=== PATIENT | male | born 2000 | race Caucasian/White ===

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

== ENCOUNTER 2018-08-31 04:26 | Emergency (ER) | payer OTHER ==
[2018-08-31] MEDS ORDERED: Metoclopramide IV* 5 MG/ML 2 ML VIAL ONE (04:39)
[2018-08-31] MEDS ORDERED: Metoclopramide IV* 5 MG/ML 2 ML VIAL IV ONE (04:41)
[2018-08-31] MEDS ORDERED: NS 0.9% 1000 ML** 2,000 ML IV ONE (04:43)
[2018-08-31] MEDS ORDERED: Pantoprazole IV* 40 MG IV ONE (04:44)
--- NOTE | 2018-08-31 04:49 | ED ---
GI/ HPI - HPI Summary HPI Summary: The patient is a 18 year old male who is presenting to the [facility] with a chief complaint of vomiting. The patient also reports of nausea, dizziness, congestion and headaches. He denies fevers and diarrhea. During the onset of the symptoms, the patient was at his friends house. 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 The leukemia has been in remission for 5 years. He reports that this left arm and left leg are weaker than his right sided extremities. Currently, the patient denies dizziness, however reports of room spinning character dizziness were stated to be prior to [facility] arrival. The pain is rated to be 6/10 in severity. Symptoms are alleviated by nothing. Symptoms are aggravated by nothing. - History of Current Complaint Chief Complaint: EDDizziness Time Seen by Provider: 08/31/18 04:28 Stated Complaint: GENERAL ILLNESS-PER EMS Hx Obtained From: Patient Timing: Constant Severity: Moderate Current Severity: Moderate Pain Intensity: 6 Associated Signs and Symptoms: Positive: Nausea, Vomiting. Negative: Diarrhea, Fever - Allergy/Home Medications Allergies/Adverse Reactions: Allergies Allergy/AdvReac Type Severity Reaction Status Date / Time MS Asparaginase AdvReac Severe Intracranial Verified 07/06/14 12:53 [Asparaginase] bleeding Home Medications: Home Medications NK [No Home Medications Reported] 08/31/18 [History Confirmed 08/31/18] PMH/Surg Hx/FS Hx/Imm Hx Endocrine/Hematology History: Denies: Hx Anticoagulant Therapy, Hx Diabetes, Hx Thyroid Disease Cardiovascular History: Denies: Hx Hypertension, Hx Pacemaker/ICD Respiratory History: Reports: Hx Asthma Denies: Hx Chronic Obstructive Pulmonary Disease (COPD) History: Denies: Hx Renal Disease Neurological History: Denies: Hx Dementia, Hx Seizures Psychiatric History: Denies: Hx Substance Abuse - Cancer History Cancer Type, 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, 2009 - Surgical History Surgery Procedure, Year, and Place: PIECE OF SKULL REMOVED, TUBES PLACED IN BUTTOCKS FOR SPIDER BITE, PORT PLACEMENT AND REMOVAL 2008 Infectious Disease History: No Infectious Disease History: Reports: Hx of Known/Suspected MRSA Denies: Hx Hepatitis, Hx Human Immunodeficiency Virus (HIV), Traveled Outside the [place] in Last 30 Days - Family History Known Family History: Positive: Non-Contributory - Social History Alcohol Use: None Substance Use Type: Reports: None Smoking Status (MU): Never Smoked Tobacco Review of Systems Constitutional: Negative Eyes: Negative ENT: Other - Congestion Cardiovascular: Negative Respiratory: Negative Positive: Vomiting, Diarrhea, Nausea Genitourinary: Negative Musculoskeletal: Negative Skin: Negative Neurological: Other - Dizziness Positive: Headache Psychological: Normal All Other Systems Reviewed And Are Negative: Yes Physical Exam - Summary Physical Exam Summary: VITAL SIGNS: Reviewed. GENERAL: Patient is a MALE) who is lying comfortable in the stretcher. Patient is not in any acute respiratory distress. Actively vomiting in the emergency room. HEAD AND FACE: No signs of trauma. No ecchymosis, hematomas or skull depressions. No sinus tenderness. EYES: PERRLA, EOMI x 2, No injected conjunctiva, no nystagmus., Extra-ocular muscles intact EARS: Hearing grossly intact. Ear canals and tympanic membranes are within normal limits. MOUTH: Oropharynx within normal limits. NECK: Supple, trachea is midline, no adenopathy, no JVD, no carotid bruit, no c- spine tenderness, neck with full ROM. CHEST: Symmetric, no tenderness at palpation LUNGS: Clear to auscultation bilaterally. No wheezing or crackles. CVS: Regular rate and rhythm, S1 and S2 present, no murmurs or gallops appreciated. ABDOMEN: Soft, non-tender. No signs of distention. No rebound no guarding, and no masses palpated. Bowel sounds are normal. EXTREMITIES: FROM in all major joints, no edema, no cyanosis or clubbing. NEURO: Left side helene-paralysis which his old; SKIN: Dry and warm Triage Information Reviewed: Yes Vital Signs On Initial Exam: Initial Vitals Temp Pulse Resp BP Pulse Ox 99 F 85 18 144/85 100 08/31/18 04:28 08/31/18 04:28 08/31/18 04:28 08/31/18 04:28 08/31/18 04:28 Vital Signs Reviewed: Yes Diagnostics - Vital Signs Vital Signs Temp Pulse Resp BP Pulse Ox 08/31/18 04:28 99 F 85 18 144/85 100 - Laboratory Result Diagrams: 08/31/18 05:10 08/31/18 05:10 Lab Statement: Any lab studies that have been ordered have been reviewed, and results considered in the medical decision making process. GIGU Course/Dx - Course Course Of Treatment: The patient is a 18 year old male who is presnting to the [facility] with a chief complaint of vomiting. The patient has had multiple episodes of vomiting. The patient's mother has discussed with us that the patient has factor 5 mutation which could be a risk factor for venous thrombosis. Due to this risk, the patient will receive a Brain MRI and Brain MRV to rule out cerebral venous thrombosis. The patient will be signed out to Dr. Giordano pending MRI, MRV and disposition. the dx will be headache. - Diagnoses Provider Diagnoses: Headache Discharge - Sign-Out/Discharge Documenting (check all that apply): Patient Departure - Discharge Home, Sign- Out Patient Signing out patient TO: Airam Giordano Patient Received Moderate/Deep Sedation with Procedure: No - Discharge Plan Condition: Stable Disposition: HOME Referrals: Randy Diaz MD [Primary Care Provider] - - Billing Disposition and Condition Condition: STABLE Disposition: Home - Attestation Statements Document Initiated by Mike: Yes Documenting Scribe: Elijah Webber Provider For Whom Mike is Documenting (Include Credential): Dr. Carissa Ellisonibganga Attestation: Elijah Montes scribed for Dr. Lamberto Goode on 08/31/18 at 0653. Scribe Documentation Reviewed: Yes Provider Attestation: The documentation as recorded by the Elijah canela accurately reflects the service I personally performed and the decisions made by Dr. Carissa almazan Status of Scribganga Document: Viewed
[2018-08-31] MEDS ORDERED: Ketorolac INJ* 15 MG/ML 1 ML VIAL IV PUSH ONE (05:06)
[2018-08-31 05:13] LABS: Influenza A Molecular NEGATIVE (Negative); Influenza B Molecular NEGATIVE (Negative)
[2018-08-31 05:32] LABS: ABS Basophils 0 10^3/ul (0-0.2); ABS Eosinophils 0.1 10^3/ul (0-0.6); ABS Lymphocytes 1.7 10^3/ul (1.0-4.8); ABS Monocytes 0.8 10^3/ul (0-0.8); ABS Neutrophils 10.1 10^3/ul (1.5-7.7); ABS Nucleated RBC 0 10^3/ul; Eosinophil % 0.7 %; Hematocrit 45 % (42-52); Hemoglobin 14.6 g/dl (14.0-18.0); Lymphocyte % 13.7 %; Mean Corpuscular HGB Conc 33 g/dl (31-36); Mean Corpuscular Hemoglobin 28 pg (27-31); Mean Corpuscular Volume 86 fL (80-94); Mean Platelet Volume 7.7 fL (7.4-10.4); Nucleated Red Blood Cells % 0; Platelet Count 236 10^3/ul (150-450); Red Blood Count 5.21 10^6/ul (4.00-5.40); Red Cell Distribution Width 14 % (10.5-15); White Blood Count 12.7 10^3/ul (3.5-10.8)
[2018-08-31] MEDS ORDERED: Ketorolac INJ* 30 MG/ML 1 ML VIAL IV PUSH ONE (05:35)
[2018-08-31] MEDS ORDERED: Ketorolac INJ* 15 MG/ML 1 ML VIAL ONE (05:37)
[2018-08-31 05:56] LABS: Albumin 4.2 g/dL (3.2-5.2); Amylase 43 U/L (29-103); CO2 Carbon Dioxide 23 mmol/L (22-32); Calcium 9.2 mg/dL (8.6-10.3); Chloride 107 mmol/L (101-111); Sodium 138 mmol/L (135-145)
[2018-08-31] MEDS ORDERED: diPHENhydraMINE IV* 50 MG/ML 1 ml VIAL (BENADRYL) IV ONE (05:58)
[2018-08-31 06:03] LABS: ALT 8 U/L (7-52); Albumin/Globulin Ratio 1.8 (1-3); Alkaline Phosphatase 85 U/L (34-104); BUN/Creatinine Ratio 10.5 (8-20); Blood Urea Nitrogen 8 mg/dL (6-24); C Reactive Protein 2.74 mg/L (<8.01); EGFR African American 158.2 (>60); EGFR Non-African American 130.8 (>60); Globulin 2.3 g/dL (2-4); Glucose 93 mg/dL (70-100); Total Protein 6.5 g/dL (6.4-8.9)
[2018-08-31 06:04] LABS: Anion Gap 8 mmol/L (2-11)
--- NOTE | 2018-08-31 07:16 | ED ---
Progress - Progress Note Progress Note: This patient was signed out from Dr. Goode to Dr. Giordano upon shift change at 07: 00 08/31/18 pending MRI and MRV of the brain. Brain MRI impression: 1. 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 2. 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 THE DIFFERENTIAL INCLUDES THE SEQUELA OF RADIATION THERAPY. ED physician has reviewed this imaging report. Head MRV impression: NO VENOUS SINUS THROMBOSIS OR OCCLUSION. ED physician has reviewed this imaging report. I discussed results with patient and he reports feeling better. He is hemodynamically stable and safe for discharge. Strict return precautions given and he will otherwise follow up with his PCP. Re-Evaluation - Re-Evaluation First Eval Re-Evaluation Time: 12:13 Change: Improved Comment: reports a slight headahce Course/Dx - Course Course Of Treatment: This patient was signed out from Dr. Goode to Dr. Giordano upon shift change at 07:00 08/31/18 pending MRI and MRV of the brain. Brain MRI impression: 1. 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 2. ELEVATED T2/FLAIR SIGNAL WITHIN THE PERIVENTRICULAR WHITE MATTER CORRESPONDING TO A. MATTER CHANGES NOTED ON MULTIPLE PREVIOUS CT SCANS CONSISTENT WITH CHRONIC WHITE MATTER. DISEASE OF UNCERTAIN ETIOLOGY. THE DIFFERENTIAL INCLUDES THE SEQUELA OF RADIATION THERAPY. ED physician has reviewed this imaging report. Head MRV impression: NO VENOUS SINUS THROMBOSIS OR OCCLUSION. ED physician has reviewed this imaging report. I discussed results with patient and he reports feeling better. He is hemodynamically stable and safe for discharge. Strict return precautions given and he will otherwise follow up with his PCP. - Diagnoses Provider Diagnoses: Headache, Dizziness Discharge - Sign-Out/Discharge Documenting (check all that apply): Patient Departure - DC Patient Received Moderate/Deep Sedation with Procedure: No - Discharge Plan Condition: Stable Disposition: HOME Prescriptions: Ondansetron ODT TAB* [Zofran 4 MG Odt TAB*] 4 mg PO Q8H PRN #12 tab.odt PRN Reason: Nausea Patient Education Materials: Acute Headache (DC), Dizziness (ED) Forms: *Work Release Referrals: Randy Diaz MD [Primary Care Provider] - (1-3 days) Additional Instructions: RETURN TO THE EMERGENCY DEPARTMENT FOR CHANGING OR WORSENING SYMPTOMS. - Billing Disposition and Condition Condition: STABLE Disposition: Home - Attestation Statements Document Initiated by Mike: Yes Documenting Scribe: Parveen Alvarez Provider For Whom Mike is Documenting (Include Credential): Airam Giordano MD Scribe Attestation: IParveen, scribed for Airam Giordano MD on 08/31/18 at 1838. Scribe Documentation Reviewed: Yes Provider Attestation: The documentation as recorded by the Parveen canela accurately reflects the service I personally performed and the decisions made by me, Kelley Giordano MD Status of Scribe Document: Viewed
[2018-08-31] MEDS ORDERED: Gadoteridol* (CONTRAST) 279.3 MG/ML 10 ML IV ONE (11:04)
[2018-08-31 12:46] VITALS: BP 137/84
== END 2018-08-31 12:46 | disposition home or self-care (01) ==
LOC: ED 04:26
DX: R51 Headache (principal); R42 Dizziness and giddiness; R11.2 Nausea with vomiting, unspecified; C95.91 Leukemia, unspecified, in remission; I69.364 Other paralytic syndrome following cerebral infarction affecting left non-dominant side; D68.51 Activated protein C resistance; Z88.8 Allergy status to other drugs, medicaments and biological substances
CPT/HCPCS: 36415; 70546; 70551; 80053; 82150; 83690; 83735; 85025; 86140; 96361; 96374; 96375; 99283; A9579; J1200; J1885; J2765

== ENCOUNTER 2018-09-01 19:55 | Observation (INO) | payer OTHER ==
--- NOTE | 2018-09-01 20:18 | ED ---
Neurological HPI - HPI Summary HPI Summary: The patient is a 18 y/o M presenting to [facility] with a chief complaint of viral symptoms starting a few days ago with new neurological symptoms today. At initial onset, the patient suddenly woke up with diaphoresis, nausea, and vomiting which continued, so he came to the ED two days ago, but all results were normal. At this time, he also had a right temporal headache and fever. All of these symptoms have persisted into today in the same presentation, but he also had seizure-like activity approximately an hour [employer], as witnessed by his mother. She states that the patient was lying on the couch, when she heard him shout for her, and when she got to him, she saw that he was having whole-body shaking that was followed by stiffness, unresponsiveness, and then confusion. This happened twice, with each episode lasting for about 2-3 minutes, and 7 minutes between the episodes. His mother states he does not seem like himself now despite rating his pain 2/10 in severity. He denies abd pain, neck pain, and chest pain, but he reports increased dizziness and becoming more off- balance with ambulation. 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 - History of Current Complaint Chief Complaint: EDSeizure Stated Complaint: HEADACHE PER EMS Time Seen by Provider: 09/01/18 20:02 Hx Obtained From: Patient Onset/Duration: Sudden Onset - neurological symptoms, Started days ago - viral symptoms, Still Present Timing: Sudden Onset Onset Severity: Moderate Current Severity: Severe Seizure Severity: Moderate Number of Seizures: 2 - witnessed by mother Neurological Deficit Location: Generalized Headache Location: Temporal (Right) Pain Intensity: 2 Pain Scale Used: 0-10 Numeric Character: Dizzy, Confusion, Responsiveness - decreased Aggravating: Nothing Alleviating: Nothing Associated Signs and Symptoms: Positive: Unsteady Gait, Headache, Confusion, Dizziness, Seizure - possible, Nausea/Vomiting, Fever. Negative: Chest Pain - Allergy/Home Medications Allergies/Adverse Reactions: Allergies Allergy/AdvReac Type Severity Reaction Status Date / Time asparaginase Allergy See Comment Verified 08/31/18 07:08 PMH/Surg Hx/FS Hx/Imm Hx Endocrine/Hematology History: Denies: Hx Anticoagulant Therapy, Hx Diabetes, Hx Thyroid Disease Cardiovascular History: Denies: Hx Hypertension, Hx Pacemaker/ICD Respiratory History: Reports: Hx Asthma Denies: Hx Chronic Obstructive Pulmonary Disease (COPD) History: Denies: Hx Renal Disease Sensory History: Denies: Hx Hearing Aid Neurological History: Denies: Hx Dementia, Hx Seizures Psychiatric History: Denies: Hx Panic Disorder, Hx Substance Abuse - Cancer History Cancer Type, 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, 2008 - Surgical History Surgery Procedure, Year, and Place: PIECE OF SKULL REMOVED, TUBES PLACED IN BUTTOCKS FOR SPIDER BITE, PORT PLACEMENT AND REMOVAL 2008 Infectious Disease History: No Infectious Disease History: Reports: Hx of Known/Suspected MRSA Denies: Hx Hepatitis, Hx Human Immunodeficiency Virus (HIV), Traveled Outside the [place] in Last 30 Days - Family History Known Family History: Positive: Non-Contributory Family History: patient and family are non-contributory at this time - Social History Lives: With Family Alcohol Use: None Hx Substance Use: No Substance Use Type: Reports: None Substance Use Comment - Amount & Last Used: occasionally Hx Tobacco Use: No Smoking Status (MU): Never Smoked Tobacco Review of Systems Positive: Fever Negative: Chest Pain Positive: Vomiting, Nausea. Negative: Abdominal Pain Neurological: Other - POSITIVE: dizziness, changes in balance, two episodes of whole body shaking followed by body stiffness, decreased responsiveness, and confusion; NEGATIVE: neck pain Positive: Headache - right temporal All Other Systems Reviewed And Are Negative: Yes Physical Exam - Summary Physical Exam Summary: Appearance: Well-appearing young man, Well-nourished, lying in bed comfortably Skin: Warm, dry, no obvious rash Eyes: sclera anicteric, no conjunctival pallor ENT: mucous membranes moist, pharynx appears normal, no oral lesions Neck: Supple, nontender, no meningismus Respiratory: Clear to auscultation, no signs of respiratory distress Cardiovascular: Normal S1, S2. No murmurs. Normal distal pulses in tibial and radial bilaterally. Abdomen: Soft, nontender, normal active bowel sounds present Musculoskeletal: Normal, Strength/ROM Intact Neurological: A&Ox3, awake and alert, mentation is normal, speech is fluent and appropriate, spastic hemiparesis on left, particularly the upper extremity Psychiatric: affect is normal, does not appear anxious or depressed Triage Information Reviewed: Yes Vital Signs On Initial Exam: Initial Vitals Temp Pulse Resp BP Pulse Ox 100.1 F 79 20 142/94 100 09/01/18 19:58 09/01/18 19:58 09/01/18 19:58 09/01/18 19:58 09/01/18 19:58 Vital Signs Reviewed: Yes Procedures - Lumbar Puncture Lumbar Paraspinals Position: Sitting Aseptic Technique: Lidocaine Anesthesia Used: 2.0% Lido Lumbar Puncture Note: Fluid was obtained from L3-L4 interspace. Diagnostics - Vital Signs Vital Signs Temp Pulse Resp BP Pulse Ox 09/01/18 19:58 100.1 F 79 20 142/94 100 - Laboratory Result Diagrams: 09/01/18 20:25 09/01/18 20:25 Lab Statement: Any lab studies that have been ordered have been reviewed, and results considered in the medical decision making process. Re-Evaluation - Re-Evaluation First Eval Re-Evaluation Time: 22:50 Change: Unchanged Comment: I spoke with the patient concerning results thus far. Course/Dx - Course Course Of Treatment: The patient is a 18 y/o M with a chief complaint of viral symptoms starting a few days ago with new neurological symptoms today. At initial onset, he had diaphoresis, nausea, vomiting, right temporal headache, and fever, which have all persisted into today. However, today he also had seizure-like activity approximately an hour [employer], as witnessed by his mother. She states that the patient was lying on the couch, when she heard him shout for her, and when she got to him, she saw that he was having whole-body shaking that was followed by stiffness, unresponsiveness, and then confusion. There were two episodes lasting 2-3 minutes each with 7 minutes in between. He denies abd pain, neck pain, and chest pain, but he reports increased dizziness and becoming more off-balance with ambulation. 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 The stroke resulted in left hemiparalysis and drop foot , but he has recovered normally otherwise. Upon physical examination, there is no meningismus, no oral lesions, and spastic hemiparesis on the left, particularly the upper extremity. In the ED course, the patient was administered Levetiracetam. Given the progression of his illness, with fever, headache, and now tonic-clonic seizure activity, I was concerned he may be developing a meningeal encephalitis. He was also prepped with Lidocaine for lumbar puncture, where fluid was taken in the sitting position from the L3-L4 interspace. Bloodwork reveals slightly elevated bilirubin. Spinal fluid shows no significant results. I consulted with Dr. Sanchez, neurology, at 2240 concerning results. I consulted with Dr. Cummings, hospitalist at 23:10; she accepts the patient for admission. The patient is diagnosed with seizure and viral syndrome. He and his parents understand the need for admission at this time. - Differential Dx Differential Diagnoses Neuro: Positive: Cephalgia, Cerebrovascular Accident, Encephalitis, Meningitis, Seizure Disorder - Diagnoses Provider Diagnoses: Seizure, Viral syndrome - Physician Notifications Discussed Care Of Patient With: Robbie Sanchez - neurology Time Discussed With Above Provider: 22:40 Instructed by Provider To: Other - I consulted Dr. Sanchez, who is now aware of the patient's situation and results thus far. I spoke withDr. Cummings at 2310 for acceptance for admission. Admit/Transition Orders Completed By ED Provider: Yes Discharge - Sign-Out/Discharge Documenting (check all that apply): Patient Departure - Patient will be discharged home. Patient Received Moderate/Deep Sedation with Procedure: No - Discharge Plan Condition: Stable Disposition: ADMITTED TO [facility] - Billing Disposition and Condition Condition: STABLE Disposition: Admitted to [facility] - Attestation Statements Document Initiated by Mike: Yes Documenting Scribe: Marina Garber Provider For Whom Mike is Documenting (Include Credential): Dr. Chetan Merino MD Scribe Attestation: Marina Montes scribed for Dr. Chetan Merino MD on 09/02/18 at 0500. Scribe Documentation Reviewed: Yes Provider Attestation: The documentation as recorded by the Marina canela accurately reflects the service I personally performed and the decisions made by me, Dr. Chetan Merino MD Status of Scribe Document: Viewed
[2018-09-01] MEDS ORDERED: levETIRAcetam IV* 1,000 MG in NS 0.9% 100 ML* 100 ML IVPB ONE (20:24)
[2018-09-01 20:43] LABS: ABS Basophils 0.1 10^3/ul (0-0.2); ABS Eosinophils 0.1 10^3/ul (0-0.6); ABS Lymphocytes 2.5 10^3/ul (1.0-4.8); ABS Neutrophils 7.9 10^3/ul (1.5-7.7); ABS Nucleated RBC 0 10^3/ul; Eosinophil % 0.5 %; Hematocrit 46 % (42-52); Hemoglobin 15.7 g/dl (14.0-18.0); Lymphocyte % 21.7 %; Mean Corpuscular HGB Conc 34 g/dl (31-36); Mean Corpuscular Hemoglobin 29 pg (27-31); Mean Corpuscular Volume 84 fL (80-94); Mean Platelet Volume 7.4 fL (7.4-10.4); Nucleated Red Blood Cells % 0; Platelet Count 248 10^3/ul (150-450); Red Blood Count 5.48 10^6/ul (4.00-5.40); Red Cell Distribution Width 14 % (10.5-15); White Blood Count 11.5 10^3/ul (3.5-10.8)
[2018-09-01] MEDS ORDERED: Lidocaine 2% 10 ML* VIAL INJ ONE (20:44)
[2018-09-01 20:49] LABS: INR 1.06 (0.77-1.02)
[2018-09-01] MEDS ORDERED: Lidocaine 1% INJ* 10 MG/ML 30 ML SDV ONE (20:52)
[2018-09-01 20:58] LABS: Albumin 4.8 g/dL (3.2-5.2); Albumin/Globulin Ratio 1.7 (1-3); BUN/Creatinine Ratio 6.1 (8-20); Calcium 9.9 mg/dL (8.6-10.3); EGFR African American 186.2 (>60); EGFR Non-African American 153.9 (>60); Globulin 2.9 g/dL (2-4); Magnesium 1.9 mg/dL (1.9-2.7); Potassium 3.3 mmol/L (3.5-5.0); Total Bilirubin 2.7 mg/dL (0.2-1.0); Total Protein 7.7 g/dL (6.4-8.9)
[2018-09-01 21:26] LABS: Body Fluid Source Cerebral Spinal
[2018-09-01 21:52] LABS: CSF Glucose 69 mg/dL (40-70)
[2018-09-01 22:31] LABS: Body Fluid Mono 5 %
[2018-09-01 23:48] LABS: Urine Appearance Clear; Urine Bilirubin Negative (Negative); Urine Blood Negative (Negative); Urine Color Yellow; Urine Glucose Negative (Negative); Urine Ketones Trace (Negative); Urine Nitrite Negative (Negative); Urine Protein Negative (Negative); Urine Specific Gravity 1.003 (1.010-1.030); Urine Urobilinogen Negative (Negative)
[2018-09-02] MEDS ORDERED: NS 0.9% 1000 ML** 1,000 ML IV SCH (00:15)
[2018-09-02] MEDS ORDERED: Acetaminophen TAB* 325 MG PO PRN (00:18)
[2018-09-02] MEDS ORDERED: LORazepam INJ* 2 MG/ML 1 ML VIAL IV PUSH PRN (00:53)
--- NOTE | 2018-09-02 02:59 | HP ---
CC: Dr. Diaz * HISTORY AND PHYSICAL: DATE OF ADMISSION: 09/02/18 PRIMARY CARE PROVIDER: Dr. Diaz. CHIEF COMPLAINT: Seizure. HISTORY OF PRESENT ILLNESS: Mr. George is a 18-year-old male who initially presented to [facility] on 08/31/18 with complaints of approximately 3 days of blurred vision, feeling off balance, vomiting, confusion, and dizziness/ lightheadedness. The patient has not felt well over the 4 days. He underwent MRI of the brain on 08/31/18, which revealed stable encephalomalacia of the right posterior frontal and anterior parietal lobes. Elevated T2-FLAIR signal within the periventricular white matter corresponding to matter changes noted on multiple previous CT scans consistent with chronic white matter disease of uncertain etiology. The differential includes the sequelae of radiation therapy. Lab work was obtained at that point and ultimately the patient was discharged to home. The patient continued to vomit several times following his arrival to home. He was very sleepy and slept during this period of time for almost 2 days straight. The patient saw Dr. Diaz earlier in the day of 06/10. At that point, the patient was still complaining of severe right-sided headache. His mom did not think that he was acting normal. He was ruled out for influenza. He was diagnosed with possible new migraines and was prescribed tramadol and Zofran. The patient was resting on the couch at dinner time when family members began calling for his mom. When she arrived, she found Daymion with whole body shaking and then becoming quite rigid. Reportedly his eyes were open, but he was not responding. This episode lasted approximately 3 minutes. Following this when he came to, he was noted to be very confused. Approximately 7 minutes later, the patient again had another episode of full body shaking with stiffening. EMS had already been summoned after the first seizure episode and when they arrived, they loaded him up into the ambulance and brought him to [facility]. The patient states that his headache that he had been having over the last 4 days has now resolved. Currently, he essentially feels back to his baseline. He is tired. 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 PAST SURGICAL HISTORY: 1. Port insertion and removal. 2. G-tube insertion and removal. MEDICATIONS: 1. Tramadol. 2. Zofran (these were just ordered on 09/01/18). ALLERGIES: ASPARAGINASE. FAMILY HISTORY: Mom is living. She is healthy. Dad's history is unknown. SOCIAL HISTORY: He does not drink alcohol. He does smoke marijuana on occasion. He is not in school and he does not work. He is not . He has no children. He indicates that his mom would be his healthcare proxy. REVIEW OF SYSTEMS: The patient does admit to subjective fever over the last several days. He has had very poor appetite, though was able to eat half sandwich in the emergency room. No chest pain, no edema. He states that he started coughing last evening. No shortness of breath. He has been nauseous and vomiting over the last several days. No diarrhea, no abdominal pain, no dysuria. He has chronic left-sided weakness of his left distal arm and left distal leg/foot. His vision had been blurred. He denied any dysphagia. No join pains or muscle pains out of the ordinary. No rashes. No anxiety or depression. PHYSICAL EXAMINATION GENERAL: The patient is a well-developed, thin, young male, seen lying in the stretcher, in no acute distress. VITAL SIGNS: Blood pressure 135/87, pulse 77, respirations 15, temp 100.1, O2 sat 99% on room air. HEENT: Pupils are equal and round. Extraocular muscles are intact. Oropharynx is clear. Oral mucosa is moist. I do not appreciate any submandibular, cervical or supraclavicular adenopathy. Thyroid is not enlarged. No thyroid nodules noted. PULMONARY: Lungs are clear to auscultation bilaterally. CARDIAC: Normal S1, S2, regular rate and rhythm. I do not appreciate any murmurs. ABDOMEN: Bowel sounds are present. Abdomen is soft, nontender, nondistended. MUSCULOSKELETAL: There is no cyanosis or clubbing of the digits. There is full active range of the limbs outside of the distal left upper extremity and distal left lower extremity. SKIN: Warm and dry. There are no rashes. NEUROLOGIC: Cranial nerves II through XII are grossly intact. Sensation is intact to light touch throughout. Strength is normal in the right upper and lower extremities. Distal left upper and lower extremity strength is reduced. PSYCH: The patient is alert. He is oriented x3. Affect is appropriate. DIAGNOSTIC STUDIES/LAB DATA: WBC 11.5, hemoglobin 15.7, hematocrit 46, platelets 248. INR 1.06. Sodium 137, potassium 3.3, chloride 97, CO2 of 29, BUN 4, creatinine 0.66, glucose 96, lactic acid 1.1, calcium 9.9, magnesium 1.9 , bilirubin 2.7, AST 12, ALT 8, alk phos 82, albumin 4.8. Urinalysis is negative for signs of infection. CSF reveals 2 white cells, 1 rbc. CSF glucose 69, CSF total protein 27. ASSESSMENT AND PLAN: Mr. George is a 18-year-old male with complicated medical history including being treated for ALL as a child with subsequent CVA with left hemiparesis, who now presents to the emergency room after having two probable seizure episodes at home. 1. Seizure. The patient's mother describes the patient being unresponsive with full body shaking and stiffening. This sounds most concerning for a seizure activity. The patient already had an MRI of the brain on 08/31/18, so we will not repeat this. He will have an EEG obtained. I questioned if the patient may have a viral illness that lowered his seizure threshold and then taking a dose of tramadol on top of that may have lowered his seizure threshold even further. The patient did receive Keppra 1000 mg IV x1 in the ER and will be continued on Keppra 500 mg p.o. twice daily starting on the morning of . Neurology consultation has been requested by the ER provider. 2. Hyperbilirubinemia. I wonder if the patient's bilirubin level is elevated due to frequent vomiting. For now, I am not going to work this up, however, if this remains elevated, right upper quadrant ultrasound could be considered. 3. DVT prophylaxis. According to the Adult Thrombosis Prophylaxis Risk Factor Assessment Guide, the patient has a total risk factor score of 2, making him moderate risk. Ambulation will be utilized as DVT prophylaxis. 4. Code status is full. TIME SPENT: Fifty five minutes was spent admitting this patient. [id number]/[facility] #: [id number] KYLIE
[2018-09-02] MEDS ORDERED: levETIRAcetam TAB* 500 MG PO SCH (09:00)
[2018-09-02] MEDS ORDERED: Ondansetron INJ* 2 MG/ML VIAL IV PRN (09:14)
[2018-09-02] MEDS ORDERED: Ketorolac INJ* 15 MG/ML 1 ML VIAL IV PUSH PRN (09:15)
[2018-09-02] MEDS ORDERED: Metoclopramide IV* 5 MG/ML 2 ML VIAL IV ONE (09:30)
--- NOTE | 2018-09-02 10:13 | PN ---
Subjective Date of Service: 09/02/18 Interval History: Had PARIKH(R>L anabaptism) this AM but now resolved after Tylenol prn. no nausea since yesterday no BM for few days. no abdominal pain. does not use cane or walker, has had multiple falls but denies head trauma. close friend who spent a lot of time with just vomited. no family sick contacts never suspicion for seizure activity before. Objective Active Medications: Acetaminophen (Tylenol Tab*) 975 mg PO Q6H PRN PRN Reason: PAIN Sodium Chloride (Ns 0.9% 1000 Ml) 1,000 mls @ 100 mls/hr IV PER RATE [facility] Stop: 09/02/18 10:14 Last Admin: 09/02/18 00:40 Dose: 100 mls/hr Ketorolac Tromethamine (Toradol Inj*) 15 mg IV PUSH Q6H PRN PRN Reason: PAIN Levetiracetam (Keppra Tab*) 500 mg PO BID [facility] Last Admin: 09/02/18 09:09 Dose: 500 mg Lorazepam (Ativan Inj*) 2 mg IV PUSH Q6H PRN PRN Reason: seizure >5min Ondansetron HCl (Zofran Inj*) 4 mg IV Q8H PRN PRN Reason: NAUSEA Vital Signs - 8 hr 09/02/18 09/02/18 09/02/18 02:10 03:04 08:40 Temperature 97.9 F 97.6 F 98.1 F Pulse Rate 52 52 51 Respiratory 20 16 16 Rate Blood Pressure 146/62 128/59 113/51 (mmHg) O2 Sat by Pulse 100 98 99 Oximetry Oxygen Devices in Use Now: None Appearance: NAD Eyes: No Scleral Icterus, PERRLA Ears/Nose/Mouth/Throat: NL Teeth, Lips, Gums Neck: NL Appearance and Movements; NL JVP Respiratory: Symmetrical Chest Expansion and Respiratory Effort, Clear to Auscultation Cardiovascular: NL Sounds; No Murmurs; No JVD, RRR Abdominal: NL Sounds; No Tenderness; No Distention, No Hepatosplenomegaly Lymphatic: No Cervical Adenopathy Skin: No Rash or Ulcers Neurological: Alert and Oriented x 3, - - left arm contracted, left foot drop and can't wiggle left toes. left sided vision cut in both eyes. Nutrition: Taking PO's Result Diagrams: 09/01/18 20:25 09/01/18 20:25 Additional Lab and Data: Laboratory Results - last 24 hr 09/01/18 09/01/18 09/01/18 20:25 20:25 20:25 WBC 11.5 H RBC 5.48 H Hgb 15.7 Hct 46 MCV 84 MCH 29 MCHC 34 RDW 14 Plt Count 248 MPV 7.4 Neut % (Auto) 68.4 Lymph % (Auto) 21.7 [place] % (Auto) 8.7 Eos % (Auto) 0.5 Baso % (Auto) 0.7 Absolute Neuts (auto) 7.9 H Absolute Lymphs (auto) 2.5 Absolute Monos (auto) 1.0 H Absolute Eos (auto) 0.1 Absolute Basos (auto) 0.1 Absolute Nucleated RBC 0 Nucleated RBC % 0 INR (Anticoag Therapy) 1.06 H Sodium 137 Potassium 3.3 L Chloride 97 L Carbon Dioxide 29 Anion Gap 11 BUN 4 L Creatinine 0.66 L Est GFR ( Amer) 186.2 Est GFR (Non-Af Amer) 153.9 BUN/Creatinine Ratio 6.1 L Glucose 96 Lactic Acid Calcium 9.9 Magnesium 1.9 Total Bilirubin 2.70 H AST 12 L ALT 8 Alkaline Phosphatase 82 Total Protein 7.7 Albumin 4.8 Globulin 2.9 Albumin/Globulin Ratio 1.7 Urine Color Urine Appearance Urine pH Ur Specific [place] Urine Protein Urine Ketones Urine Blood Urine Nitrate Urine Bilirubin Urine Urobilinogen Ur Leukocyte Esterase Urine Glucose Fluid Source Fluid Volume Fluid Color Fluid Appearance Fluid WBC Fluid RBC Fluid Tot Cell Count Fluid Neutrophils Fluid Lymphocytes Fluid Monocytes Fluid Comment CSF Cell Count Tube # CSF Glucose CSF Total Protein 09/01/18 09/01/18 09/01/18 20:25 21:15 21:15 WBC RBC Hgb Hct MCV MCH MCHC RDW Plt Count MPV Neut % (Auto) Lymph % (Auto) [place] % (Auto) Eos % (Auto) Baso % (Auto) Absolute Neuts (auto) Absolute Lymphs (auto) Absolute Monos (auto) Absolute Eos (auto) Absolute Basos (auto) Absolute Nucleated RBC Nucleated RBC % INR (Anticoag Therapy) Sodium Potassium Chloride Carbon Dioxide Anion Gap BUN Creatinine Est GFR ( Amer) Est GFR (Non-Af Amer) BUN/Creatinine Ratio Glucose Lactic Acid 1.1 Calcium Magnesium Total Bilirubin AST ALT Alkaline Phosphatase Total Protein Albumin Globulin Albumin/Globulin Ratio Urine Color Urine Appearance Urine pH Ur Specific [place] Urine Protein Urine Ketones Urine Blood Urine Nitrate Urine Bilirubin Urine Urobilinogen Ur Leukocyte Esterase Urine Glucose Fluid Source Cerebral spinal Fluid Volume 1.0 Fluid Color Colorless Fluid Appearance Clear Fluid WBC 2 Fluid RBC 1 Fluid Tot Cell Count 50 Fluid Neutrophils 10 Fluid Lymphocytes 35 Fluid Monocytes 5 Fluid Comment CSF Cell Count Tube # 4 CSF Glucose 69 CSF Total Protein 27 09/01/18 23:33 WBC RBC Hgb Hct MCV MCH MCHC RDW Plt Count MPV Neut % (Auto) Lymph % (Auto) [place] % (Auto) Eos % (Auto) Baso % (Auto) Absolute Neuts (auto) Absolute Lymphs (auto) Absolute Monos (auto) Absolute Eos (auto) Absolute Basos (auto) Absolute Nucleated RBC Nucleated RBC % INR (Anticoag Therapy) Sodium Potassium Chloride Carbon Dioxide Anion Gap BUN Creatinine Est GFR ( Amer) Est GFR (Non-Af Amer) BUN/Creatinine Ratio Glucose Lactic Acid Calcium Magnesium Total Bilirubin AST ALT Alkaline Phosphatase Total Protein Albumin Globulin Albumin/Globulin Ratio Urine Color Yellow Urine Appearance Clear Urine pH 7.0 Ur Specific [place] 1.003 L Urine Protein Negative Urine Ketones Trace A Urine Blood Negative Urine Nitrate Negative Urine Bilirubin Negative Urine Urobilinogen Negative Ur Leukocyte Esterase Negative Urine Glucose Negative Fluid Source Fluid Volume Fluid Color Fluid Appearance Fluid WBC Fluid RBC Fluid Tot Cell Count Fluid Neutrophils Fluid Lymphocytes Fluid Monocytes Fluid Comment CSF Cell Count Tube # CSF Glucose CSF Total Protein Microbiology and Other Data: Microbiology 09/01/18 21:15 Cerebral Spinal Fluid CSF Gram Stain (Tube 3) - Final Assess/Plan/Problems-Billing Assessment: 18 yo male PMH ALL s/p chemotherapy age 7 complicated by CVA with residual left foot drop and left arm contractures/weakness p/w few days of R>L temporal headache, blurry vision, nausea, vomiting, fatigue. Got tramadol then 2 suspected generalized tonic clonic seizures. MRI Brain w/o contrast with stable encephalomalacia of right posterior frontal and anterior parietal lobe. chronic white matter changes. Left vision cut. - Patient Problems (1) Seizure Current Visit: Yes Status: Acute Code(s): R56.9 - UNSPECIFIED CONVULSIONS SNOMED Code(s): 38002987 Comment: f/u EEG continue keppra f/u Neuro recs (2) Headache Current Visit: Yes Status: Acute Code(s): R51 - HEADACHE SNOMED Code(s): 59211743 Comment: tylenol prn reglan & zofran prn avoid tramadol due to seizure threshold reduction. (3) Left homonymous hemianopsia Current Visit: Yes Status: Acute Code(s): H53.462 - HOMONYMOUS BILATERAL FIELD DEFECTS, LEFT SIDE SNOMED Code(s): 68261226 Comment: f/u neuro recs just had MRI Brain 08/31. consider MRA head/neck but will defer to neuro (4) History of CVA (cerebrovascular accident) Current Visit: Yes Status: Acute Code(s): Z86.73 - PRSNL HX OF TIA (TIA), AND CEREB INFRC W/O RESID DEFICITS SNOMED Code(s): 143615085 Comment: residual left foot drop and arm contracture/weakness. (5) Nausea & vomiting Current Visit: Yes Status: Acute Code(s): R11.2 - NAUSEA WITH VOMITING, UNSPECIFIED SNOMED Code(s): 17832730 Comment: zofran prn likely in setting of viral insult (6) Elevated bilirubin Current Visit: Yes Status: Acute Code(s): R17 - UNSPECIFIED JAUNDICE SNOMED Code(s): 650120478 Comment: has been elevated in the past (up to 4). no abdominal pain. Negative Carreon's sign. no transaminitis. ?Gilbert's (7) Falls frequently Current Visit: Yes Status: Acute Code(s): R29.6 - REPEATED FALLS SNOMED Code(s): 012072250 Comment: resistant to using a cane. PT and OT especially with now vision cut Status and Disposition: medicine obs, admitted early today.
--- NOTE | 2018-09-02 14:21 | EEG ---
ELECTROENCEPHALOGRAPHY: DATE OF STUDY: 09/02/18 - ROOM #432 REFERRING PHYSICIAN: Dr. Cummings. LOCATION: He is an inpatient. CLINICAL HISTORY: History of stroke while receiving chemotherapy as a child. Recent onset of seizures. MEDICATIONS: Include Lorazepam, Keppra. REPORT: This 16-channel EEG is remarkable for background rhythms at the beginning of the tracing consisting of a well-formed alpha rhythm in the left occipital region at about 8-1/2 to 9 cycles per second. There is diffuse polymorphic delta activity from the right hemisphere. Shortly after the onset of tracing, the patient exhibits an electrographic seizure with a buildup of initially a low voltage and then a higher voltage fast activity, starting initially in the right frontoparietal area but particularly around the P4 electrode region. The episode lasts about 50 seconds altogether and when the patient is asked his name and date of , he is able to respond. The seizure remains largely in the right hemisphere but there is some overflow and to the left central parietal area. After that, there is a higher voltage slowing from the right hemisphere diffusely and alpha rhythms resume in the left occipital region pretty quickly. Later in the tracing there is occasional low voltage fast activity seen from the same central parietal area but it does not last more than a second or two. Persistent right hemisphere slowing continues. Activation procedures were not attempted. There is no evidence of patient drowsing or sleep. INTERPRETATION: Abnormal EEG due to slowing from the right hemisphere as well as an electrographic seizure emanating from the right hemisphere early in this tracing. This tracing is compatible with a clinical diagnosis of a focal onset seizure disorder emanating from the right hemisphere. [id number]/[facility] #: [id number] [facility] CENTERAllyson
[2018-09-02] MEDS ORDERED: levETIRAcetam 500 MG IVPREMIX* 500 MG/100 ML BAG IV ONE (14:30)
--- NOTE | 2018-09-02 16:27 | CONS ---
NEUROLOGY CONSULTATION: DATE OF CONSULT: 09/02/18 LOCATION: He is an inpatient, room 432. REFERRING PROVIDER: Dr. Cummings. CHIEF COMPLAINT: Seizure. HISTORY OF PRESENT ILLNESS: Donn George is a 18-year-old right handed young man who has been sick for about a week. He was having nausea and a fever. He was not eating much and has not had a bowel movement in several days. Last night he was observed to have a generalized convulsion by his mother who is present in the room this afternoon. It lasted several minutes and he was very confused and lethargic after that. He underwent an MRI of the brain on because of he was not feeling well and being dizzy and having blurred vision. That revealed stable encephalomalacia of the right hemisphere. He was having a bad right-sided headache as well. He seemed to be not acting his usual self and so he was evaluated for possible influenza and prescribed tramadol for his headaches. He was resting on the couch last night when he had a convulsion lasting about 3 minutes. Several minutes later, he had a second episode. EMS was activated and he was brought in to the emergency room. He was given Keppra 1000 mg IV. He has not had any further convulsions. He still feels very tired, but has for several days. He does not feel any more tired now than he did the last couple of days. He notes that he cannot see things to his left side, which is a new problem. He had a stroke associated with treatment of leukemia with asparaginase when he was a child. He has had a chronic left hemiparesis since. He has never had a seizure before including during childhood. He was taking tramadol for his recent headaches, but other than that he does not take any medication on a regular basis. He had been prescribed Zofran recently with this illness. PAST MEDICAL HISTORY: Notable for the leukemia, which is in remission and stroke. FAMILY HISTORY: There is no family history of epilepsy. SOCIAL HISTORY: Lives at home. He does not smoke cigarettes nor drink alcohol. REVIEW OF SYSTEMS: Notable for the intestinal problems noted above. There is no history of diabetes, hypertension, or heart disease. He usually does not get headaches. There is no history of meningitis. There is no history of head trauma. He did fall a couple of years ago, which sounds to be just a slip. He ambulates independently. 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 There is no history of drug abuse other than smoking marijuana. PHYSICAL EXAMINATION: He is a thin 18-year-old young man with hemiatrophy of his left side. He looks tired, but is able to cooperate and appears well hydrated. Temperature most recently 98.0 with a T-max of 100.1 when he came in. Blood pressure is running about 130/70, heart rate is in the 50s, respiratory rate of 16 and oxygen saturation is 100% on room air. Heart is in a regular rhythm without murmurs. Neck is supple. There are no cervical bruits. Lungs are clear bilaterally. Oral mucosa is moist and atraumatic. He has a contracture at the left ankle. Neurological Exam: Pupils react equally from 5 down to 3 mm. Eye movements are full. He has left homonymous hemianopia. Funduscopic exam is normal bilaterally. There is some nystagmus in right gaze. There is no deviation of gaze. Facial musculature is notable for mild left facial hemiatrophy. Facial sensation to light touch is normal and symmetric. Palate and tongue appear normal, tongue protrudes in the midline and palates raises symmetrically. Hearing is intact. Motor exam reveals a spastic and dystonic left upper extremity. There is some spasticity in the left leg and there is a 100 degree left angle contracture. He has normal strength in the right arm and leg. Finger taps and finger-to- nose maneuver are normal on the right side only. Sensory exam in the limbs is intact and symmetric. He is alert and oriented and he provides meaningful history. Language is fluent. Attention and concentration and fund of knowledge seem adequate. DIAGNOSTIC STUDIES/LAB DATA: He had an EEG earlier today and there was an electroencephalographic seizure and he was able to give his name and date of , but currently he does not recall that episode. Laboratory data includes the EEG, which revealed an electrographic seizure from the right hemisphere, which lasted about 50 seconds. There was diffuse slowing from the right hemisphere. MRI of the brain from 08/31/18 reviewed and reveals encephalomalacia in the right middle cerebral artery territory, but no evidence of recent infarction. There is also some patchy white matter disease. Laboratory data also includes a spinal fluid results including notable for 2 white cells per microliter, 1 red blood cell, glucose was 69 and protein of 27. Spinal fluid Gram stain revealed 2+ neutrophils, but no organisms. Spinal fluid culture after 1 day is negative. Other laboratory data notable for a normal urinalysis from 09/01/18, chemistry profile notable for potassium of 3.3 and a total bilirubin of 2.7 with normal liver enzymes. INR is borderline elevated at 1.06. CBC from 09/01/18 notable for borderline elevated white blood cell count at 11.5. IMPRESSION: Impression is that of a new onset seizure from the right hemisphere , undoubtedly from his prior stroke. Tramadol and fever may have further lowered his seizure threshold. Given his very active EEG from earlier today and his persistent left hemianopia , which is reportedly new, I recommend augmenting his Keppra with extra 500 mg intravenously now and then bumping his maintenance dose to 1000 mg q.12 hours and changing into IV rather than p.o. We will repeat his EEG tomorrow morning. I explained the results of his testing to Donn and his mother and the need for ongoing anticonvulsant medication. I explained potential side effects of the Keppra including short-term issues regarding sedation and longer term issues regarding mood and irritability. I told them if he has problems going forward on Keppra, we could consider switching to something else, but for now it is a good choice to try to get things under control. There is no evidence of an intracranial infection. I told him and reinforced that he cannot drive for a minimum of 6 months from his seizure and needs to notify the department of motor vehicles. I will continue to follow him along with you. [id number]/[facility] #: [id number] [facility]
[2018-09-02] MEDS: Acetaminophen TAB* 325 MG PO PRN (18:14)
[2018-09-02] MEDS ORDERED: NS 0.9% 100 ML* 100 ML ONE (19:38)
[2018-09-02] MEDS: levETIRAcetam IV* 750 MG in NS 0.9% 100 ML* 100 ML IVPB SCH (20:15)
[2018-09-03] MEDS: Acetaminophen TAB* 325 MG PO PRN ×2 (04:37→11:12)
[2018-09-03] MEDS: levETIRAcetam IV* 750 MG in NS 0.9% 100 ML* 100 ML IVPB SCH ×2 (08:21→20:55)
[2018-09-03 10:38] LABS: ABS Basophils 0 10^3/ul (0-0.2); ABS Eosinophils 0 10^3/ul (0-0.6); ABS Lymphocytes 0.6 10^3/ul (1.0-4.8); ABS Monocytes 0.6 10^3/ul (0-0.8); ABS Neutrophils 11.2 10^3/ul (1.5-7.7); ABS Nucleated RBC 0 10^3/ul; Eosinophil % 0.1 %; Hematocrit 44 % (36-46); Hemoglobin 14.8 g/dL (14.0-18.0); Lymphocyte % 4.8 %; Mean Corpuscular HGB Conc 34 g/dL (31-36); Mean Corpuscular Hemoglobin 28 pg (27-31); Mean Corpuscular Volume 84 fL (80-94); Mean Platelet Volume 7.3 fL (7.4-10.4); Nucleated Red Blood Cells % 0; Platelet Count 242 10^3/uL (150-450); Red Blood Count 5.24 10^6 /uL (4.18-5.48); Red Cell Distribution Width 14 % (10.5-15); White Blood Count 12.4 10^3/uL (3.5-10.8)
[2018-09-03 11:12] LABS: Albumin 4.3 g/dL (3.2-5.2); Albumin/Globulin Ratio 1.6 (1-3); BUN/Creatinine Ratio 8.4 (8-20); Calcium 9.4 mg/dL (8.6-10.3); EGFR African American 142.9 (>60); EGFR Non-African American 118.1 (>60); Globulin 2.7 g/dL (2-4); Indirect Bilirubin 0.8 mg/dL (0.3-1.0); Potassium 3.5 mmol/L (3.5-5.0); Total Bilirubin 1.1 mg/dL (0.2-1.0)
--- NOTE | 2018-09-03 16:32 | PN ---
Subjective Date of Service: 09/03/18 Interval History: Patient yesterday had resolution of left eye hemianopia, but this AM it resumed with a cough this AM and was accompanied by right temporal headache. Patient denies any other new weakness from his baseline. Patient had one episode of vomiting this AM which has no recurred with unclear cause. Patient had bradycardia while sleeping. Patient denies CP, SOB, F/C, abdominal pain, dysuria , or other pain. Patient endorses no sedation with the keppra and is feeling like her has more energy the further he gets from the confirmed seizure episode. Family History: Unchanged from Admission Social History: Unchanged from Admission Past Medical History: Unchanged from Admission Objective Active Medications: Acetaminophen (Tylenol Tab*) 975 mg PO Q6H PRN PRN Reason: PAIN Last Admin: 09/03/18 11:12 Dose: 975 mg Levetiracetam 750 mg/ Sodium (Chloride) 107.5 mls @ 440 mls/hr IVPB Q12H ANGELICA Last Admin: 09/03/18 08:21 Dose: 440 mls/hr Ketorolac Tromethamine (Toradol Inj*) 15 mg IV PUSH Q6H PRN PRN Reason: PAIN Last Admin: 09/03/18 06:01 Dose: 15 mg Lorazepam (Ativan Inj*) 2 mg IV PUSH Q6H PRN PRN Reason: seizure >5min Ondansetron HCl (Zofran Inj*) 4 mg IV Q8H PRN PRN Reason: NAUSEA Last Admin: 09/03/18 05:15 Dose: 4 mg Vital Signs - 8 hr 09/03/18 09/03/18 11:38 15:49 Temperature 98.3 F Pulse Rate 79 94 Respiratory 16 Rate Blood Pressure 114/44 (mmHg) O2 Sat by Pulse 99 98 Oximetry Oxygen Devices in Use Now: None Appearance: Patient is a 18yo male who appears stated age and is sitting in the bed in NAD. Eyes: No Scleral Icterus, PERRLA Ears/Nose/Mouth/Throat: NL Teeth, Lips, Gums, Clear Oropharnyx, Mucous Membranes Moist Neck: NL Appearance and Movements; NL JVP, Trachea Midline Respiratory: Symmetrical Chest Expansion and Respiratory Effort, Clear to Auscultation Cardiovascular: NL Sounds; No Murmurs; No JVD, RRR, No Edema Abdominal: NL Sounds; No Tenderness; No Distention, No Hepatosplenomegaly Lymphatic: No Cervical Adenopathy Extremities: No Edema, No Clubbing, Cyanosis, - - Atrophy of left arm and leg. Skin: No Rash or Ulcers, No Nodules or Sclerosis Neurological: Alert and Oriented x 3, - - CN II-XII intact except for left lateral visual field hemianopia. 3/5 strength in LUE and 4-/5 in LLE. 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 Got tramadol then 2 suspected generalized tonic clonic seizures. MRI Brain w/o contrast with stable encephalomalacia of right posterior frontal and anterior parietal lobe. chronic white matter changes. Left vision cut which is intermittent, likely post-ictal phenomenon per neurology. - Patient Problems (1) Elevated bilirubin Current Visit: Yes Status: Acute Code(s): R17 - UNSPECIFIED JAUNDICE SNOMED Code(s): 281881413 Comment: - Elevated in past up to 4.0 with a indirect predominence on fractionization. - Decreased today but direct predominence. (2) Falls frequently Current Visit: Yes Status: Acute Code(s): R29.6 - REPEATED FALLS SNOMED Code(s): 204477730 Comment: - PT and OT especially with new vision cut (3) Headache Current Visit: Yes Status: Acute Code(s): R51 - HEADACHE SNOMED Code(s): 55212918 Comment: - Tylenol prn - Reglan & Zofran prn (4) History of CVA (cerebrovascular accident) Current Visit: Yes Status: Acute Code(s): Z86.73 - PRSNL HX OF TIA (TIA), AND CEREB INFRC W/O RESID DEFICITS SNOMED Code(s): 093719907 Comment: - Residual left foot drop and arm contracture/weakness. - Stable. (5) Left homonymous hemianopsia Current Visit: Yes Status: Acute Code(s): H53.462 - HOMONYMOUS BILATERAL FIELD DEFECTS, LEFT SIDE SNOMED Code(s): 43304072 Comment: - Appreciate Neuro input - Believed to be post-ictal phenomenon due to intermittent nature. - MRI brain on 08/31, no recommendation for repeat or additional imaging. (6) Nausea & vomiting Current Visit: Yes Status: Acute Code(s): R11.2 - NAUSEA WITH VOMITING, UNSPECIFIED SNOMED Code(s): 73921180 Comment: - Intermittent - Zofran PRN. (7) Seizure Current Visit: Yes Status: Acute Code(s): R56.9 - UNSPECIFIED CONVULSIONS SNOMED Code(s): 71419508 Comment: - Repeat EEG shows decreased epileptic activity. - Continue Keppra IV overnight and transition to PO if no change. (8) DVT prophylaxis Current Visit: Yes Status: Acute Code(s): NQH5044 - SNOMED Code(s): 264628240 Comment: - Low risk, SCDs and Encourage Movement. (9) Full code status Current Visit: Yes Status: Acute Code(s): Z78.9 - OTHER SPECIFIED HEALTH STATUS SNOMED Code(s): 312399400 Status and Disposition: Inpatient, Hopeful D/C tomorrow.
--- NOTE | 2018-09-03 17:19 | CONS ---
FOLLOWUP CONSULTATION: DATE OF FOLLOWUP: 09/03/18 HOSPITALIST: ADRIENNE Campos LOCATION: He is an inpatient, room 432. CHIEF COMPLAINT: Seizures. INTERVAL HISTORY: Since yesterday, Daymion feels better. He is not as nauseous and he has been drinking fluids and eating. He does not feel as tired as he did yesterday. Last evening, after a nap, the hemianopia that he had developed was gone. 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 He has had the left hemianopia throughout the day. He describes it as wavy lines like a TV pattern. MEDICATIONS: Medications were reviewed and he is on: 1. Keppra 750 mg IV q.12 hours. 2. Toradol 15 mg IV q.6 hours p.r.n. pain. 3. Zofran 4 mg IV q.6 hours p.r.n. nausea. PHYSICAL EXAM: On exam, he is thin, but well hydrated. Most recent temperature 98.1, blood pressure 113/51, heart rate in the 50s. On exam earlier, he had full eye movements. He had a left hemianopia still. He was more alert than yesterday. He seemed quite comfortable. DIAGNOSTIC STUDIES/LAB DATA: CBC this morning notable for white blood cell count 12.4 and otherwise unremarkable CBC. Chemistries this morning notable for his bilirubin down to 1.1 and otherwise unremarkable. 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 He had recurrence of this hemianopia after it resolved last night, so I think it is probably postictal. I want to keep him on IV Keppra for another day. If he is still having a hemianopia tomorrow, I may have to repeat his MRI scan. The fact that it resolved and came back again suggests to me, however, that is not a new vascular event, but rather an ictal phenomenon. [id number]/[facility] #: [id number] MTDD
--- NOTE | 2018-09-03 20:51 | EEG ---
ELECTROENCEPHALOGRAPHY: DATE OF STUDY: 09/03/18 REFERRING PROVIDER: Dr. Sanchez. LOCATION: He is an inpatient, room 432. CLINICAL HISTORY: New-onset seizures in a patient with a right hemispheric stroke during childhood. MEDICATIONS: Include: 1. Keppra. 2. Toradol p.r.n. REPORT: This 16-channel EEG is remarkable for background rhythms consisting of a well-formed alpha rhythm in the left occipital derivations at 9 cycles per second, which is symmetric. Polymorphic delta activity is seen fairly diffusely from the right hemisphere. There is some bifrontal beta activity in the left frontal regions, but not so much in the right. The patient is clinically awake. There is an occasional spike noted in the right frontal region near the F4 and C4 electrodes. There are no clinical events. There are no electrographic seizures. INTERPRETATION: Abnormal EEG due to generalized slowing from the right hemisphere with an occasional frontal sharp waves. Compared to the tracer from yesterday, there are no electrographic seizures and much fewer epileptiform features. [id number]/[facility] #: [id number] [facility]
[2018-09-04 05:41] LABS: ABS Basophils 0 10^3/ul (0-0.2); ABS Eosinophils 0.2 10^3/ul (0-0.6); ABS Lymphocytes 2.2 10^3/ul (1.0-4.8); ABS Monocytes 0.9 10^3/ul (0-0.8); ABS Nucleated RBC 0 10^3/ul; Eosinophil % 2.5 %; Hematocrit 42 % (36-46); Lymphocyte % 23.7 %; Mean Corpuscular HGB Conc 33 g/dL (31-36); Mean Corpuscular Hemoglobin 28 pg (27-31); Mean Corpuscular Volume 85 fL (80-94); Mean Platelet Volume 7.5 fL (7.4-10.4); Nucleated Red Blood Cells % 0.1; Platelet Count 254 10^3/uL (150-450); Red Blood Count 4.93 10^6 /uL (4.18-5.48); Red Cell Distribution Width 14 % (10.5-15); White Blood Count 9.4 10^3/uL (3.5-10.8)
[2018-09-04 06:03] LABS: Calcium 9.3 mg/dL (8.6-10.3); EGFR African American 144.9 (>60); EGFR Non-African American 119.8 (>60); Magnesium 2.1 mg/dL (1.9-2.7); Potassium 3.4 mmol/L (3.5-5.0)
[2018-09-04] MEDS ORDERED: Potassium Chlor TAB* 20 MEQ TAB.ER PO ONE (07:12)
[2018-09-04] MEDS: levETIRAcetam IV* 750 MG in NS 0.9% 100 ML* 100 ML IVPB SCH (08:21)
[2018-09-04] MEDS ORDERED: Potassium Chloride LIQUID* 20 MEQ PACKET PO ONE (09:00)
[2018-09-04 12:38] VITALS: BP 121/67
[2018-09-04] MEDS: Acetaminophen TAB* 325 MG PO PRN (14:42)
--- NOTE | 2018-09-04 23:19 | DS ---
DISCHARGE SUMMARY: DATE OF ADMISSION: 09/02/18 DATE OF DISCHARGE: 09/04/18 PRIMARY CARE PROVIDER: Dr. Diaz. MY ATTENDING WHILE IN THE HOSPITAL: Dr. Juventino Rader.* (DICTATED BY ADRIENNE MENON) CONSULTING NEUROLOGIST: Dr. Robbie Sanchez. PRIMARY DISCHARGE DIAGNOSIS: New onset seizures, left hemianopia likely ictal phenomenon. SECONDARY DISCHARGE DIAGNOSES: 1. History of stroke with residual left-sided deficits. 2. History of acute lymphocytic leukemia status post chemotherapy. MEDICATIONS AT DISCHARGE: 1. Zofran 4 mg p.o. q.8 hours as needed. 2. Tylenol 750 mg p.o. q.8 hours as needed. 3. Keppra 1000 mg p.o. b.i.d. New Medications on Discharge: 1. Tylenol. 2. Keppra. Medications discontinued on discharge: 1. Tramadol. HOSPITAL COURSE: This a brief summary of the patient's presentation. For more details, please see the history and physical from Dr. Indu Cummings on . In brief, the patient is a 18-year-old male with past medical history significant for the above, who presents to the emergency department for 3 days of blurred vision, feeling off balance, vomiting, confusion, and lightheadedness. The patient had an MRI of his brain on 08/31/18, which revealed no new stroke. The patient extremely very sleepy and after being seen in the emergency department, the patient was seen by his primary care doctor on 09/01/18 and was complaining of a headache and abnormal behavior. The patient was prescribed tramadol, which he took and then he was found shortly thereafter to have full body shaking and rigidity which lasted approximately 3 minutes and a recurrent episode of the same. The patient was brought into the emergency department. The patient's headache was gone except for feeling tired and being back to his baseline. The patient was admitted to the hospital for new onset seizures. The patient was started on Keppra. The patient had an EEG, which showed significant epileptiform activity emanating from right hemisphere. The patient was started on Keppra. The patient had no seizures while in the hospital. The patient had new left lateral hemianopia, which was believed to be an ictal phenomenon which came and went throughout his hospitalization. The patient was on Keppra 750 mg IV twice daily while in the hospital. The patient had a lumbar puncture, which was unremarkable with no growth after 3 days. The patient on the 3rd day of the hospitalization still had left hemianopia. The patient had an brain MRI which was unchanged from previous and had no new findings. The patient was stable and amendable to be discharged on 1000 mg of Keppra twice daily per Neurology. PHYSICAL EXAMINATION ON THE DAY OF DISCHARGE: General: The patient is a 18- year- old male who appears stated age, sitting comfortably in bed, in no acute distress. Vital Signs at the time of evaluation: Temperature 98.1, pulse rate _ , respiratory rate 14, oxygen saturation 99% on room air, blood pressure 121/67. HEENT: Head normocephalic and atraumatic. Sclerae anicteric. No conjunctival injection. Nasal mucosa moist. Oral mucosa moist. No pharyngeal erythema, discharge, or exudate. Neck: Supple, nontender. No lymphadenopathy. No carotid bruits auscultated. No JVD. Cardiac: Regular rate and rhythm. No clicks, murmurs, gallops, or rubs. Pulses are 2+ in the dorsalis pedis, posterior tibialis, and radial areas. Respiratory: Clear to auscultation bilaterally. No wheezes, rales, or rhonchi. Good air exchange bilaterally. Abdomen: Soft, nontender, and nondistended. Bowel sounds present , normoactive in all 4 quadrants. No hepatosplenomegaly. No abdominal bruits auscultated. No hepatojugular reflux. Genitourinary: No suprapubic or CVA tenderness. Skin: Clean and intact. No rashes. Neuro: Left-sided hemiparesis with 3/5 strength in the left upper extremity, 4-/5 strength in the left lower extremity. No cranial nerve deficits except for left sided lateral hemianopia. Psychiatric: Pleasant and cooperative. DISCHARGE PLAN: The patient will be discharged to home. The patient lives with his mother who provides care. The patient will be started on Keppra 1000 mg p.o. b.i.d. The patient should follow up with the primary care provider in 1 week for general medical management. The patient should avoid taking medications that lower seizure threshold such as tramadol and should dispose properly if any tramadol that is still present at his house. The patient should follow up with Dr. Sanchez within 1 month for monitoring of his seizures and to assess the efficacy and side effects of his treatment with Keppra. The patient should have a regular unrestricted diet. The patient is underweight and we encourage calorie intake. The patient should return to the hospital for new or worsening seizures or any new neurologic deficits, chest pain, shortness of breath, passing, or other alarming symptoms. The patient engage in activity as tolerated. TIME SPENT: Approximately 60 minutes were spent on the discharge of this patient, 30 of which was spent [id number] with the patient obtaining history and physical and discussing treatment plan. ADRIENNE MENON [id number]/[facility] #: [id number] KYLIE
== END 2018-09-04 18:30 | disposition home or self-care (01) ==
LOC: ED 19:55 → MEDTELE 09-02 00:15
PROVIDERS: ADMIT Hospitalist; ATTEND Internal Medicine
DX: G40.919 Epilepsy, unspecified, intractable, without status epilepticus (principal); R51 Headache; R11.2 Nausea with vomiting, unspecified; R42 Dizziness and giddiness; B34.9 Viral infection, unspecified; R17 Unspecified jaundice; R29.6 Repeated falls; Z86.73 Personal history of transient ischemic attack (TIA), and cerebral infarction without residual deficits; H53.462 Homonymous bilateral field defects, left side; Z92.21 Personal history of antineoplastic chemotherapy; H53.8 Other visual disturbances; R41.0 Disorientation, unspecified; Z85.6 Personal history of leukemia
CPT/HCPCS: 36415; 62270; 70551; 80048; 80053; 80076; 81003; 82945; 83605; 83735; 84157; 85025; 85610; 87070; 87205; 89051; 95816; 96361; 96365; 96372; 96375; 99283; A9270-GY; G0378; J1885; J2405

== ENCOUNTER 2018-10-02 00:04 | Emergency (ER) | payer OTHER ==
[2018-10-02 02:41] VITALS: BP 122/78
== END 2018-10-02 02:43 | disposition left against medical advice (07) ==
LOC: ED 00:04
DX: R06.02 Shortness of breath (principal); Z53.21 Procedure and treatment not carried out due to patient leaving prior to being seen by health care provider
CPT/HCPCS: 93005; 99281

== ENCOUNTER 2021-01-15 12:20 | Observation (INO) ==
[2021-01-15] MEDS ORDERED: NS 0.9% 1000 ml BAG 1,000 ML IV ONE ×2 (12:46→13:26)
[2021-01-15] MEDS ORDERED: Ondansetron 4 mg VIAL 2 MG/ML 2 ml VIAL IV ONE (13:26)
[2021-01-15 13:27] LABS: ABS Lymphocytes 1.1 10^3/ul (1.0-4.8); ABS Monocytes 0.5 10^3/ul (0-0.8); ABS Neutrophils 9.4 10^3/ul (1.5-7.7); Hematocrit 45 % (42-52); Hemoglobin 15.6 g/dL (14.0-18.0); Lymphocyte % 9.8 %; Mean Corpuscular HGB Conc 35 g/dL (31-36); Mean Corpuscular Hemoglobin 29 pg (27-31); Mean Corpuscular Volume 83 fL (80-94); Mean Platelet Volume 7.3 fL (7.4-10.4); Platelet Count 242 10^3/uL (150-450); Red Blood Count 5.36 10^6 /uL (4.18-5.48); Red Cell Distribution Width 13 % (10-15)
[2021-01-15 13:45] LABS: ALT 14 U/L (7-52); AST 18 U/L (13-39); Albumin 4.7 g/dL (3.2-5.2); Albumin/Globulin Ratio 1.6 (1-3); Alkaline Phosphatase 73 U/L (35-149); Anion Gap 9 mmol/L (2-11); Blood Urea Nitrogen 11 mg/dL (6-24); C Reactive Protein < 1.00 mg/L (<8.01); CO2 Carbon Dioxide 25 mmol/L (22-32); Calcium 9.6 mg/dL (8.6-10.3); Chloride 99 mmol/L (101-111); Creatine Kinase 57 U/L (10-223); EGFR African American 155.2 (>60); EGFR Non-African American 128.3 (>60); Globulin 2.9 g/dL (2-4); Glucose 100 mg/dL (70-100); Magnesium 1.9 mg/dL (1.9-2.7); Potassium 3.4 mmol/L (3.5-5.0); Sodium 133 mmol/L (135-145); Total Protein 7.6 g/dL (6.4-8.9)
[2021-01-15] MEDS ORDERED: Valproic Acid IV 1,000 MG in NS 0.9% 100 ml BAG 100 ML IVPB ONE (16:39)
[2021-01-15] MEDS ORDERED: NS 0.9% 100 ml BAG 100 ML ONE (17:01)
[2021-01-15] MEDS ORDERED: Ondansetron ODT 4 mg TAB 4 MG TAB SL PRN (17:27)
[2021-01-15] MEDS ORDERED: Potassium Chlor 20 meq TAB.ER PO ONE (17:28)
[2021-01-15] MEDS ORDERED: Valproic Acid IV 100 MG/ML 5 ML VIAL (500 MG) IVPB SCH (21:00)
[2021-01-16 06:15] LABS: ABS Lymphocytes 1.9 10^3/ul (1.0-4.8); ABS Monocytes 0.7 10^3/ul (0-0.8); ABS Neutrophils 5.4 10^3/ul (1.5-7.7); Eosinophil % 0.5 %; Hematocrit 40 % (42-52); Hemoglobin 13.9 g/dL (14.0-18.0); Lymphocyte % 23.4 %; Mean Corpuscular HGB Conc 35 g/dL (31-36); Mean Corpuscular Hemoglobin 29 pg (27-31); Mean Corpuscular Volume 84 fL (80-94); Mean Platelet Volume 7.4 fL (7.4-10.4); Platelet Count 222 10^3/uL (150-450); Red Blood Count 4.78 10^6 /uL (4.18-5.48); Red Cell Distribution Width 13 % (10-15)
[2021-01-16 06:50] LABS: Albumin/Globulin Ratio 1.5 (1-3); Calcium 9.1 mg/dL (8.6-10.3); EGFR Non-African American 132.3 (>60); Globulin 2.6 g/dL (2-4); Total Bilirubin 1.7 mg/dL (0.2-1.0); Total Protein 6.6 g/dL (6.4-8.9)
[2021-01-16] MEDS ORDERED: Valproic Acid IV 500 MG in NS 0.9% 100 ML IVPB SCH (07:30)
[2021-01-16 15:46] VITALS: BP 108/54
== END 2021-01-16 16:25 | disposition home or self-care (01) ==
LOC: ED 12:20 → MED 12:20
PROVIDERS: ADMIT Hospitalist; ATTEND Hospitalist